=== PATIENT | female | born 2000 | race Caucasian/White ===

== ENCOUNTER 2018-06-07 14:33 | Emergency (ER) | payer MEDICAID ==
[2018-06-07] MEDS ORDERED: METOCLOPRAMIDE HCL 10 MG TABLET PO ONE (15:32)
[2018-06-07] MEDS: NORMAL SALINE 1000 ML 1,000 ML IV PRN ×2 (15:43→15:44)
[2018-06-07 16:27] LABS: ABSOLUTE EOSINOPHILS # (AUTO) 0.1 10^3/uL (0.0-0.6); ABSOLUTE LYMPHOCYTES (AUTO) 2.3 10^3/uL (0.5-4.7); ABSOLUTE MONOCYTES (AUTO) 0.6 10^3/uL (0.1-1.4); ABSOLUTE NEUT (AUTO) 5.6 10^3/uL (1.7-8.2); BASOPHILS % (AUTO) 0.2 % (0-2); EOSINOPHILS % (AUTO) 1.3 % (0-6); HEMATOCRIT 35.6 % (36.0-47.0); HEMOGLOBIN 12.2 g/dL (12.0-15.5); LYMPHOCYTES % (AUTO) 26.9 % (13-45); MEAN CORPUSCULAR HEMOGLOBIN 30.1 pg (27.0-33.4); MEAN CORPUSCULAR HGB CONC 34.2 g/dL (32.0-36.0); MEAN CORPUSCULAR VOLUME 88 fl (80-97); MONOCYTES % (AUTO) 6.9 % (3-13); PLATELET COUNT 271 10^3/uL (150-450); RED BLOOD COUNT 4.05 10^6/uL (3.72-5.28); RED CELL DISTRIBUTION WIDTH 13.2 % (11.5-14.0); SEGMENTED NEUTROPHILS % (AUTO) 64.7 % (42-78); TOTAL CELLS COUNTED % (AUTO) 100 %; WHITE BLOOD COUNT 8.6 10^3/uL (4.0-10.5)
[2018-06-07 16:30] LABS: AMORPHOUS SEDIMENT,URINE TRACE /HPF; APPEARANCE,URINE CLOUDY; BILIRUBIN,URINE NEGATIVE (NEGATIVE); COLOR,URINE YELLOW; GLUCOSE, URINE NEGATIVE (NEGATIVE); KETONES,URINE NEGATIVE (NEGATIVE); LEUKOCYTE ESTERASE,URINE NEGATIVE (NEGATIVE); NITRITE,URINE NEGATIVE (NEGATIVE); PROTEIN,URINE NEGATIVE (NEGATIVE); URINE SPECIFIC GRAVITY 1.015; UROBILINOGEN,URINE NEGATIVE mg/dL (<2.0)
[2018-06-07 16:49] LABS: ANION GAP 11 (5-19); BLOOD UREA NITROGEN 9 mg/dL (7-20); CALCIUM 10.3 mg/dL (8.4-10.2); CARBON DIOXIDE 24 mmol/L (22-30); CHLORIDE 103 mmol/L (98-107); GLUCOSE 74 mg/dL (75-110); POTASSIUM 4.5 mmol/L (3.6-5.0); SODIUM 138.3 mmol/L (137-145)
[2018-06-07 18:07] VITALS: BP 103/53
--- NOTE | 2018-06-07 20:30 | ER Document Report ---
ED General - General Chief Complaint: Nausea/Vomiting Stated Complaint: POSSIBLE DEHYDRATION Time Seen by Provider: 06/07/18 15:31 TRAVEL OUTSIDE OF THE [place] IN LAST 30 DAYS: No - HPI Patient complains to provider of: Nausea vomiting Notes: Patient coming for nausea vomiting . Patient states she is approximately 9 weeks . Patient is following up with the health department. Patient denies any vaginal bleeding denies any abdominal pain. Resting healthy upon my evaluation denies dysuria of the review of hospital problems denies fevers chills diarrhea - Related Data Allergies/Adverse Reactions: No Known Allergies Allergy (Unverified 06/07/18 14:37) Past Medical History - Social History Smoking Status: Current Every Day Smoker Family History: Reviewed & Not Pertinent Patient has suicidal ideation: No Patient has homicidal ideation: No Renal/ Medical History: Denies: Hx Peritoneal Dialysis Review of Systems - Review of Systems Constitutional: No symptoms reported EENT: No symptoms reported Cardiovascular: No symptoms reported Respiratory: No symptoms reported Gastrointestinal: Nausea, Vomiting Genitourinary: No symptoms reported Female Genitourinary: No symptoms reported Musculoskeletal: No symptoms reported Skin: No symptoms reported Hematologic/Lymphatic: No symptoms reported Neurological/Psychological: No symptoms reported -: Yes All other systems reviewed and negative Physical Exam - Vital signs Vitals: Temp Pulse Resp BP Pulse Ox 98.1 F 80 14 113/61 100 06/07/18 14:38 06/07/18 14:38 06/07/18 14:38 06/07/18 14:38 06/07/18 14:38 Interpretation: Normal - General General appearance: Appears well, Alert - HEENT Head: Normocephalic, Atraumatic Eyes: Normal Pupils: PERRL - Respiratory Respiratory status: No respiratory distress Chest status: Nontender Breath sounds: Normal Chest palpation: Normal - Cardiovascular Rhythm: Regular Heart sounds: Normal auscultation Murmur: No - Abdominal Inspection: Normal Distension: No distension Bowel sounds: Normal Tenderness: Nontender Organomegaly: No organomegaly - Back Back: Normal, Nontender - Extremities General upper extremity: Normal inspection, Nontender, Normal color, Normal ROM , Normal temperature General lower extremity: Normal inspection, Nontender, Normal color, Normal ROM , Normal temperature, Normal weight bearing. No: Haja's sign - Neurological Neuro grossly intact: Yes Cognition: Normal Orientation: AAOx4 [place] Coma Scale Eye Opening: Spontaneous [place] Coma Scale Verbal: Oriented [place] Coma Scale Motor: Obeys Commands [place]ilin Coma Scale Total: 15 Speech: Normal Motor strength normal: LUE, RUE, LLE, RLE Sensory: Normal - Psychological Associated symptoms: Normal affect, Normal mood - Skin Skin Temperature: Warm Skin Moisture: Dry Skin Color: Normal Course - Re-evaluation Re-evalutation: 06/07/18 20:31 Bedside ultrasound shows an IUP approximately 8-9 weeks with a heart rate 158. Laboratory studies noticed no signs of severity with no ketosis no protein in the urine no signs of AK I. Patient will be discharged home follow- up primary care physician - Vital Signs Vital signs: Temp Pulse Resp BP Pulse Ox 98.1 F 80 14 113/61 100 06/07/18 14:38 06/07/18 14:38 06/07/18 14:38 06/07/18 14:38 06/07/18 14:38 - Laboratory Result Diagrams: 06/07/18 15:45 06/07/18 15:45 Laboratory results interpreted by me: 06/07/18 06/07/18 15:45 15:45 Hct 35.6 L Creatinine 0.49 L Glucose 74 L Calcium 10.3 H Beta HCG, Quant 706871.00 H Discharge - Discharge Clinical Impression: Qualifiers: Weeks of gestation: 8 weeks Qualified Code(s): Z3A.08 - 8 weeks gestation of Nausea & vomiting Qualifiers: Vomiting type: unspecified Vomiting Intractability: unspecified Qualified Code( s): R11.2 - Nausea with vomiting, unspecified Condition: Good Disposition: HOME, SELF-CARE Instructions: ([facility]), Nausea or Vomiting, Nonspecific ([facility]) Additional Instructions: Laboratory studies did not show signs of significant dehydration. Please use Reglan as prescribed for any nausea that she may have. Please continue take vitamins as prescribed. Follow-up with your [employer]. heart rate today was approximately 158. Congratulations on being please make sure that you drink plenty of fluids and eat healthy diet to keep herself and the healthy. Return to the ER for any concerns Prescriptions: Metoclopramide HCl [Reglan] 5 mg PO Q6 #30 tablet Prenat 115/Iron Fum/Folic/Dss [ 19 Tablet] 1 each PO DAILY #30 tablet Forms: Return to Work
== END 2018-06-07 18:16 | disposition home or self-care (01) ==
LOC: ER 14:33
DX: O21.9 Vomiting of pregnancy, unspecified (principal); O99.331 Smoking (tobacco) complicating pregnancy, first trimester; Z3A.08 8 weeks gestation of pregnancy
CPT/HCPCS: 99284; 96360; 36415; 84702; 85025; 80048; 81001; J3490; J7030